=== PATIENT | male | born 1965 | race Caucasian/White ===

== ENCOUNTER 2017-03-10 19:30 | Emergency (ER) | payer BC ==
[~2017-03-10] VITALS: Ht 182.9 cm; Wt 72.1 kg
[2017-03-10 19:42] VITALS: BP_SYST 157
--- NOTE | 2017-03-10 19:50 | NUR ---
Patient to ER bed 6 to gown for evaluation. Side rails up.
--- NOTE | 2017-03-10 20:30 | NUR ---
Patient AOx4, brought in by wheelchair, presents to ER with complaint of nausea, vomiting, diarrhea, generalized weakness, and tremors. Patient states he is dehydrated and unable to keep anything down. No other symptoms or complaints at this time.
--- NOTE | 2017-03-10 22:20 | NUR ---
OKSANA Pratt at bedside for medical evaluation.
[2017-03-10] MEDS ORDERED: NACL 0.9% 1,000 ML IV ONE (22:30)
--- NOTE | 2017-03-10 22:45 | NUR ---
# 20 gauge angiocath placed to LFA. Use of asceptic technique. Opsite placed over site. Blood return noted. Flushed with 10 cc of normal saline. No evidence of infiltration noted. Patient tolerated well.
--- NOTE | 2017-03-10 23:20 | NUR ---
IVF infusing with no s/s of infiltration at this time. Will cont to monitor.
[2017-03-11 00:19] VITALS: BP_SYST 136
--- NOTE | 2017-03-11 00:19 | NUR ---
Patient given written and verbal discharge instructions and verbalizes understanding. ER MD discussed with patient the results and treatment provided. Patient in stable condition. ID arm band removed. IV catheter removed intact and dressing applied, no active bleeding. Rx of Zofran given. Patient educated on pain management and to follow up with PMD. Pain Scale 0/10. Opportunity for questions provided and answered.
== END 2017-03-11 00:19 | disposition home or self-care (01) ==
LOC: SED 19:30
DX: K52.9 Noninfective gastroenteritis and colitis, unspecified (principal); E86.0 Dehydration
CPT/HCPCS: 36415; 86710; 96360; 99284; J7030

== ENCOUNTER 2023-09-13 11:40 | Inpatient (IN) | payer BC, MEDICAID ==
[~2023-09-13] VITALS: Ht 182.9 cm; Wt 80.1 kg
[2023-09-13 12:24] VITALS: BP_SYST 132; PULSE 90; RESP 16; TEMP 97.5; O2SAT 96
[2023-09-13] MEDS: FUROSEMIDE 20 MG/2 ML VIAL IVP ONE (13:02)
[2023-09-13] MEDS: ASPIRIN 81 MG TAB.CHEW PO ONE (13:02)
[2023-09-13] MEDS: cefTRIAXone 1 GM IVPB PREMIX 50 ML IV ONE (13:05)
[2023-09-13] MEDS: NITROGLYCERIN 1 INCH (GM) OINT. TD ONE (13:06)
[2023-09-13 13:28] LABS: BASOPHILS # (AUTO) 0.1 K/uL (0.0-0.2); BASOPHILS % (AUTO) 1.3 % (0.0-2.0); EOSINOPHILS # (AUTO) 0.3 K/uL (0.0-0.4); EOSINOPHILS % (AUTO) 6.2 % (0.0-4.0); HEMATOCRIT 42.9 % (36-54); HEMOGLOBIN 14.8 g/dL (14.0-18.0); LYMPHOCYTES % (AUTO) 23.5 % (20.5-51.5); MEAN CORPUSCULAR HEMOGLOBIN 34 pg (27-31); MEAN CORPUSCULAR HGB CONC 35 % (32-36); MEAN CORPUSCULAR VOLUME 99 fL (79.0-98.0); MONOCYTES # (AUTO) 0.6 K/uL (0.0-1.0); NEUTROPHILS # (AUTO) 2.4 K/uL (1.8-7.7); PLATELET COUNT (AUTO) 156 K/uL (130-430); RED BLOOD CELL COUNT(AUTO) 4.32 MIL/uL (4.2-6.2); RED CELL DISTRIBUTION WIDTH 14.9 % (9.0-15.0); WHITE BLOOD COUNT (AUTO) 4.3 K/uL (4.8-10.8)
[2023-09-13 13:39] LABS: ANION GAP 12 (5-15); CALCIUM 8.5 mg/dL (8.4-11.0); CARBON DIOXIDE 25 mmol/L (23-29); CHLORIDE 102 mmol/L (98-107); CREATININE 0.71 mg/dL (0.55-1.30); GFR AFRICAN AMERICAN 147 mL/min (>90); GFR NON AFRICAN-AMERICAN 122 mL/min (>90); GLUCOSE 121 mg/dL (74-106); POTASSIUM 3.7 mmol/L (3.5-5.1); SODIUM SERUM 139 mmol/L (136-145); UREA NITROGEN, BLOOD 3 mg/dL (8-21)
[2023-09-13] MEDS ORDERED: NICOTINE 14 MG/24 HR PATCH.TD24 TD SCH (15:00)
[2023-09-13] MEDS: NICOTINE 14 MG/24 HR PATCH.TD24 TD ONE (15:44)
[2023-09-13] MEDS: NACL 0.9% 1,000 ML IV SCH (16:00)
[2023-09-13] MEDS: AMPICILLIN SODIUM/SULBACTAM NA 1.5 GM VIAL IM ONE (16:15)
[2023-09-13] MEDS: ENOXAPARIN SODIUM 30 MG/0.3 ML SYRINGE SUBCUT ONE (17:58)
[2023-09-13] MEDS: ACETAMINOPHEN 325 MG TABLET PO PRN (18:11)
[2023-09-13 18:56] VITALS: BP_SYST 117; PULSE 83; RESP 18; TEMP 98.2; O2SAT 96
[2023-09-13 20:00] VITALS: BP_SYST 122; PULSE 85; RESP 18; TEMP 98.5; O2SAT 97
[2023-09-13 21:00] VITALS: BP_SYST 122; PULSE 85; RESP 18; TEMP 98.5
[2023-09-13] MEDS: VANCOMYCIN HCL 1,000 MG in NS 250 ML IV SCH (21:50)
[2023-09-13] MEDS: ONDANSETRON HCL 4 MG/2 ML VIAL IVP PRN (23:17)
[2023-09-14 07:20] LABS: BASOPHILS % (AUTO) 0.7 % (0.0-2.0); EOSINOPHILS # (AUTO) 0.2 K/uL (0.0-0.4); EOSINOPHILS % (AUTO) 5.1 % (0.0-4.0); HEMATOCRIT 39.6 % (36-54); HEMOGLOBIN 13.6 g/dL (14.0-18.0); LYMPHOCYTES # (AUTO) 0.8 K/uL (1.0-5.5); LYMPHOCYTES % (AUTO) 16.3 % (20.5-51.5); MEAN CORPUSCULAR HEMOGLOBIN 34 pg (27-31); MEAN CORPUSCULAR HGB CONC 34 % (32-36); MEAN CORPUSCULAR VOLUME 99 fL (79.0-98.0); MONOCYTES # (AUTO) 0.6 K/uL (0.0-1.0); MONOCYTES % (AUTO) 13.5 % (1.7-9.3); NEUTROPHILS % (AUTO) 64.4 % (40.0-70.0); PLATELET COUNT (AUTO) 128 K/uL (130-430); RED BLOOD CELL COUNT(AUTO) 3.98 MIL/uL (4.2-6.2); RED CELL DISTRIBUTION WIDTH 14.9 % (9.0-15.0); WHITE BLOOD COUNT (AUTO) 4.6 K/uL (4.8-10.8)
[2023-09-14 07:42] LABS: ALBUMIN 2.6 g/dL (3.4-4.8); CALCIUM 8.1 mg/dL (8.4-11.0); CREATININE 0.79 mg/dL (0.55-1.30); POTASSIUM 3.6 mmol/L (3.5-5.1); TOTAL BILIRUBIN 0.8 mg/dL (0.0-1.0); TOTAL PROTEIN, SERUM 6.3 g/dL (6.4-8.3)
[2023-09-14 08:27] VITALS: BP_SYST 142; PULSE 78; RESP 18; TEMP 97.7; O2SAT 98
[2023-09-14 08:45] VITALS: O2SAT 97
[2023-09-14] MEDS: ENOXAPARIN SODIUM 30 MG/0.3 ML SYRINGE SUBCUT SCH (09:33)
[2023-09-14] MEDS: cefTRIAXone 1 GM IVPB PREMIX 50 ML IV SCH (09:35)
[2023-09-14] MEDS ORDERED: LORazepam 2 MG/ML VIAL IM PRN (12:00)
[2023-09-14 12:22] VITALS: BP_SYST 130; PULSE 80; RESP 19; TEMP 98; O2SAT 98
[2023-09-14] MEDS: NICOTINE 21 MG/24 HR PATCH.TD24 TD ONE (12:47)
[2023-09-14] MEDS: chlordiazePOXIDE HCL 25 MG CAPSULE PO ONE (12:48)
[2023-09-14] MEDS: chlordiazePOXIDE HCL 25 MG CAPSULE PO SCH (15:44)
[2023-09-14 16:27] VITALS: BP_SYST 144; PULSE 79; RESP 17; TEMP 97.9; O2SAT 97
[2023-09-14] MEDS: THIAMINE HCL 100 MG in NS 50 ML IV ONE (18:53)
[2023-09-14 18:56] LABS: BARBITURATE, URINE NEGATIVE (NEG <=200)
[2023-09-14 18:57] LABS: BENZODIAZEPINE, URINE NEGATIVE (NEG <=150); CANNABINOID, URINE NEGATIVE (NEG <=50); COCAINE, URINE NEGATIVE (NEG <=150); METHAMPHETAMINES SCREEN,URINE NEGATIVE (NEG <=500); OPIATE, URINE NEGATIVE (NEG <=100); PHENCYCLIDINE SCREEN,URINE NEGATIVE (NEG <=25); UR TRICYCLIC ANTIDEPRESSANTS NEGATIVE (NEG <=300); URINE AMPHETAMINE NEGATIVE (NEG <=500); URINE METHADONE NEGATIVE (NEG <=200); URINE OXYCODONE SCREEN NEGATIVE (NEG <=100)
[2023-09-14 20:00] VITALS: BP_SYST 115; PULSE 72; RESP 18; TEMP 97.5; O2SAT 96
[2023-09-14] MEDS: MULTIVITAMINS TAB 1 TABLET GT SCH (21:58)
[2023-09-15] VITALS (7 sets, daily range): BP systolic 124–142; PULSE 59–74; RESP 16–18; TEMP 97.5–98.2; O2SAT 96–100
[2023-09-15] MEDS: HYDROcodone/ACETAMIN 5-325 MG TAB (NORCO/ VICODIN) PO PRN (00:37)
[2023-09-15 06:13] LABS: BASOPHILS % (AUTO) 0.8 % (0.0-2.0); EOSINOPHILS # (AUTO) 0.3 K/uL (0.0-0.4); EOSINOPHILS % (AUTO) 6.5 % (0.0-4.0); HEMATOCRIT 38.8 % (36-54); HEMOGLOBIN 13.2 g/dL (14.0-18.0); LYMPHOCYTES # (AUTO) 0.9 K/uL (1.0-5.5); LYMPHOCYTES % (AUTO) 20.6 % (20.5-51.5); MEAN CORPUSCULAR HEMOGLOBIN 34 pg (27-31); MEAN CORPUSCULAR HGB CONC 34 % (32-36); MEAN CORPUSCULAR VOLUME 99 fL (79.0-98.0); MONOCYTES # (AUTO) 0.7 K/uL (0.0-1.0); MONOCYTES % (AUTO) 15.6 % (1.7-9.3); NEUTROPHILS # (AUTO) 2.4 K/uL (1.8-7.7); NEUTROPHILS % (AUTO) 56.5 % (40.0-70.0); PLATELET COUNT (AUTO) 124 K/uL (130-430); RED BLOOD CELL COUNT(AUTO) 3.91 MIL/uL (4.2-6.2); RED CELL DISTRIBUTION WIDTH 14.9 % (9.0-15.0); WHITE BLOOD COUNT (AUTO) 4.3 K/uL (4.8-10.8)
[2023-09-15 07:49] LABS: VANCOMYCIN,TROUGH 16.1 ug/mL (10.0-20.0)
[2023-09-15] MEDS: NICOTINE 21 MG/24 HR PATCH.TD24 TD SCH (08:28)
[2023-09-16] VITALS: BP_SYST 123; PULSE 68; RESP 16; TEMP 98; O2SAT 99
[2023-09-16] MEDS: MORPHINE 2 MG/ML INJ. SYRINGE IVP PRN (02:35)
[2023-09-16 04:37] LABS: BASOPHILS % (AUTO) 0.8 % (0.0-2.0); EOSINOPHILS # (AUTO) 0.3 K/uL (0.0-0.4); EOSINOPHILS % (AUTO) 6.5 % (0.0-4.0); HEMATOCRIT 38.5 % (36-54); HEMOGLOBIN 13.1 g/dL (14.0-18.0); LYMPHOCYTES # (AUTO) 0.9 K/uL (1.0-5.5); LYMPHOCYTES % (AUTO) 22.5 % (20.5-51.5); MEAN CORPUSCULAR HEMOGLOBIN 34 pg (27-31); MEAN CORPUSCULAR HGB CONC 34 % (32-36); MEAN CORPUSCULAR VOLUME 101 fL (79.0-98.0); MONOCYTES # (AUTO) 0.7 K/uL (0.0-1.0); MONOCYTES % (AUTO) 16.6 % (1.7-9.3); NEUTROPHILS # (AUTO) 2.2 K/uL (1.8-7.7); NEUTROPHILS % (AUTO) 53.6 % (40.0-70.0); PLATELET COUNT (AUTO) 124 K/uL (130-430); RED BLOOD CELL COUNT(AUTO) 3.83 MIL/uL (4.2-6.2); RED CELL DISTRIBUTION WIDTH 14.7 % (9.0-15.0)
[2023-09-16 05:03] LABS: ALBUMIN 2.6 g/dL (3.4-4.8); CALCIUM 8.3 mg/dL (8.4-11.0); CREATININE 0.79 mg/dL (0.55-1.30); PHOSPHORUS 3.6 mg/dL (2.7-4.5); POTASSIUM 3.9 mmol/L (3.5-5.1); TOTAL BILIRUBIN 0.6 mg/dL (0.0-1.0); TOTAL PROTEIN, SERUM 6.1 g/dL (6.4-8.3)
[2023-09-16 08:00] VITALS: BP_SYST 126; PULSE 66; RESP 17; TEMP 97.7; O2SAT 99
[2023-09-16 11:08] VITALS: BP_SYST 119; PULSE 72; RESP 16; TEMP 96.5; O2SAT 100
[2023-09-16] MEDS ORDERED: SULF1TAB48 PO (13:39)
[2023-09-16] MEDS ORDERED: CEPH250C PO (13:39)
[2023-09-16 15:07] VITALS: BP_SYST 124; PULSE 69; RESP 16; TEMP 96.9; O2SAT 97
[2023-09-16 16:13] VITALS: BP_SYST 124; PULSE 69; RESP 16; TEMP 96.9; O2SAT 97
[2023-09-26] MEDS ORDERED: HYDR50CA5 PO (16:16)
[2023-09-26] MEDS ORDERED: SERT-131 PO (16:16)
[2023-10-01] MEDS ORDERED: CLIN-22 PO (17:30)
[2023-10-01] MEDS ORDERED: AUG875 PO (17:30)
[2023-10-02] MEDS ORDERED: FOLI-43 PO (10:09)
[2023-10-02] MEDS ORDERED: CHLO10CA6 PO (10:09)
[2023-10-02] MEDS ORDERED: THIA100T70 PO (10:09)
[2023-10-02] MEDS ORDERED: NICO-737 TD (10:09)
[2023-10-02] MEDS ORDERED: NALT50TA5 PO (10:09)
[2023-10-02] MEDS ORDERED: MULT400T13 PO (10:09)
== END 2023-09-16 17:20 | disposition home or self-care (01) | DRG 383 ==
LOC: SED 11:40 → SMU 15:59
PROVIDERS: ADMIT Student in an Organized Health Care Education/Training Program; ATTEND Student in an Organized Health Care Education/Training Program
DX: L03.116 Cellulitis of left lower limb (principal); E44.0 Moderate protein-calorie malnutrition; D69.6 Thrombocytopenia, unspecified; F32.A Depression, unspecified; Z68.23 Body mass index [BMI] 23.0-23.9, adult; Z72.0 Tobacco use; Z79.899 Other long term (current) drug therapy; F10.139 Alcohol abuse with withdrawal, unspecified; F19.10 Other psychoactive substance abuse, uncomplicated
CPT/HCPCS: 36415; 71045; 80048; 80053; 80202; 80307; 83605; 83735; 83880; 84100; 84484; 85025; 87040; 93005; 93970; 97112-GP; 97116-GP; 99285; G0482; J0295; J0696; J1650; J1940; J2270; J2405; J3370; J3411; J7050